=== PATIENT | female | born 1945 | race Caucasian/White ===

== ENCOUNTER 2018-04-08 06:00 | Outpatient (CLI) | payer OTHER | END 2018-04-08 06:05 | disposition home or self-care (01) | LOC: EKG 06:00 → O/R 04-12 05:15 → SURH 04-12 05:15 → EDSTATUS 04-12 07:15 → O/R 04-12 09:00 | DX: M13.862 Other specified arthritis, left knee (principal); Z01.810 Encounter for preprocedural cardiovascular examination ==

== ENCOUNTER 2018-08-30 07:00 | Inpatient (IN) | payer OTHER ==
[~2018-08-30] VITALS: Ht 157.5 cm; Wt 72.6 kg
[2018-08-30] MEDS ORDERED: PNEU16DI2 (09:15)
[2018-08-30] MEDS ORDERED: LOTREL 5-20 MG1 CAP (09:15)
[2018-08-30] MEDS ORDERED: KAPSPARGO SPRIN25 MG (09:15)
[2018-08-30] MEDS ORDERED: SYNTHROID50 MCG PO (11:22)
[2018-08-30] MEDS ORDERED: TENORMIN50 MG PO (11:22)
== END 2018-09-09 18:00 | DRG 470 ==
LOC: O/R 09-06 06:00 → SURG 09-06 06:00 → SURH 09-06 07:00 → SURG 09-06 10:27
PROVIDERS: ADMIT Orthopaedic Surgery
PROC: 0SRD0J9 Replacement of Left Knee Joint with Synthetic Substitute, Cemented, Open Approach (ICD-10-PCS; principal; 2018-09-06 10:15)
DX: M17.12 Unilateral primary osteoarthritis, left knee (principal); D62 Acute posthemorrhagic anemia; E03.8 Other specified hypothyroidism; I10 Essential (primary) hypertension